=== PATIENT | female | born 1985 | race Hispanic/Latino ===

== ENCOUNTER 2021-10-12 18:20 | Inpatient (IN) | payer SELFPAY ==
[2021-10-12] VITALS (14 sets, daily range): BP systolic 99–147; BP diastolic 73–104
[~2021-10-12] VITALS: Ht 160 cm; Wt 79.9 kg
[2021-10-12] MEDS ORDERED: FLUMAZENIL 0.5MG/ 5ML VIAL IV PRN ×2 (18:45→19:00)
[2021-10-12] MEDS ORDERED: FLUMAZENIL 0.5MG/ 5ML VIAL IV ONE ×2 (18:45)
[2021-10-12 18:50] LABS: CLARITY,URINE CLEAR (CLEAR); COLOR,URINE YELLOW (YELLOW); LEUKOCYTE ESTERASE ,URINE NEGATIVE (NEGATIVE); NITRITE,URINE NEGATIVE (NEGATIVE)
[2021-10-12 18:51] LABS: KETONES,URINE NEGATIVE (NEGATIVE); PROTEIN,URINE DIPSTICK NEGATIVE (NEGATIVE); URINE UROBILINOGEN 0.2 mg/dL (0.2 - 1)
[2021-10-12 18:54] LABS: AMPHETAMINES SCREEN,URINE NEGATIVE (NEGATIVE); BENZODIAZEPINES SCREEN,URINE POSITIVE (NEGATIVE); PHENCYCLIDINE SCREEN,URINE NEGATIVE (NEGATIVE)
[2021-10-12 18:59] LABS: BACTERIA,URINE MODERATE /HPF
[2021-10-12 19:05] LABS: BASOPHILS # (AUTO) 0.1 (0.0-0.1); BASOPHILS % 0.8 % (0.0-1.0); EOSINOPHILS # (AUTO) 0.1 (0.0-0.4); EOSINOPHILS % 1.6 % (0.0-6.0); HEMATOCRIT 38.9 % (34.2-44.1); LYMPHOCYTES # (AUTO) 1.8 (1.0-3.2); LYMPHOCYTES % 19.9 % (18.0-39.1); MEAN CORPUSCULAR HEMOGLOBIN 32.2 pg (28-32); MEAN CORPUSCULAR HGB CONC 30.8 g/dL (31-35); MEAN CORPUSCULAR VOLUME 104.3 fL (81-99); MONOCYTES # (AUTO) 0.5 (0.2-0.8); MONOCYTES % 5.3 % (4.4-11.3); NEUTROPHILS # (AUTO) 6.5 (2.1-6.9); NEUTROPHILS % 72.3 % (38.7-80.0); PLATELET COUNT 185 x10e3/uL (140-360); RED BLOOD COUNT 3.73 x10e6/uL (3.6-5.1); RED CELL DISTRIBUTION WIDTH 13.9 % (11.7-14.4)
[2021-10-12] MEDS: SODIUM CHLORIDE 0.9% 1000ML 1,000 ML IV SCH ×2 (19:05→19:26)
[2021-10-12 19:23] LABS: SALICYLATE < 5.0 mg/dL (0-30)
[2021-10-12 20:15] LABS: CREATINE KINASE 51 IU/L (29-168)
[2021-10-12 20:19] LABS: ALANINE AMINOTRANSFERASE < 6 IU/L (0-55); ALBUMIN 3.1 g/dL (3.5-5.0); ALKALINE PHOSPHATASE 51 IU/L (40-150); ANION GAP 20.8 mmol/L (8-16); BLOOD UREA NITROGEN 6 mg/dL (7-26); BUN/CREATININE RATIO 8 (6-25); CALCIUM 7.1 mg/dL (8.4-10.2); CARBON DIOXIDE 10 mmol/L (22-29); CHLORIDE 120 mmol/L (98-107); CREATININE, SERUM 0.73 mg/dL (0.57-1.11); GLUCOSE 85 mg/dL (74-118); POTASSIUM 4.8 mmol/L (3.5-5.1); SODIUM 146 mmol/L (136-145)
[2021-10-13] VITALS (22 sets, daily range): BP systolic 95–151; BP diastolic 61–109
[2021-10-13 07:23] LABS: BASOPHILS # (AUTO) 0.1 (0.0-0.1); BASOPHILS % 0.6 % (0.0-1.0); EOSINOPHILS # (AUTO) 0.1 (0.0-0.4); EOSINOPHILS % 0.9 % (0.0-6.0); HEMATOCRIT 54.5 % (34.2-44.1); HEMOGLOBIN 15.8 g/dL (12.0-16.0); LYMPHOCYTES # (AUTO) 1.2 (1.0-3.2); LYMPHOCYTES % 7.5 % (18.0-39.1); MEAN CORPUSCULAR HEMOGLOBIN 32.2 pg (28-32); MEAN CORPUSCULAR VOLUME 111.2 fL (81-99); MONOCYTES # (AUTO) 0.7 (0.2-0.8); MONOCYTES % 4.7 % (4.4-11.3); NEUTROPHILS # (AUTO) 13.7 (2.1-6.9); PLATELET COUNT 209 x10e3/uL (140-360); RED CELL DISTRIBUTION WIDTH 14.3 % (11.7-14.4)
[2021-10-13 07:51] LABS: ANION GAP 19.3 mmol/L (8-16); BLOOD UREA NITROGEN < 5 mg/dL (7-26); CALCIUM 8.7 mg/dL (8.4-10.2); CHLORIDE 119 mmol/L (98-107); CREATININE, SERUM 0.74 mg/dL (0.57-1.11); GLUCOSE 75 mg/dL (74-118); POTASSIUM 4.3 mmol/L (3.5-5.1); SODIUM 142 mmol/L (136-145)
[2021-10-13 07:54] LABS: BUN/CREATININE RATIO 7 (6-25)
[2021-10-13 07:56] LABS: CARBON DIOXIDE 8 mmol/L (22-29)
[2021-10-13] MEDS ORDERED: SODIUM BICARBONATE 8.4% 50 ML in DEXTROSE 5% 1,000 ML IV ONE (08:15)
[2021-10-13 09:21] LABS: BLOOD UREA NITROGEN < 5 mg/dL (7-26); GLUCOSE 99 mg/dL (74-118); OSMOLALITY,SERUM 277 mOsm/kg (278-305); SODIUM 140 mmol/L (136-145)
[2021-10-13 09:34] LABS: ANISOCYTOSIS SLIGHT; EOSINOPHILS % (MANUAL) 1 % (0-7); LYMPHOCYTES % (MANUAL) 6 % (19-48); NEUTROPHILS % (MANUAL) 92 % (40-74); PLATELET ESTIMATE ADEQUATE; PLATELET MORPHOLOGY COMMENT NORMAL; RBC MORPHOLOGY COMMENT NORMAL
[2021-10-13] MEDS: LEVOFLOXACIN 500MG/D5W 100ML 100 ML IV SCH (10:13)
[2021-10-13 11:00] LABS: ABG PCO2 24 mmHg (35-45)
[2021-10-13 11:01] LABS: ABG HCO3 12 mmol/L (22-26); ABG PO2 141 mmHg (80-105); ABG TCO2 13
[2021-10-13 15:37] LABS: ALBUMIN 3.9 g/dL (3.5-5.0); ANION GAP 15.3 mmol/L (8-16); CALCIUM 8.8 mg/dL (8.4-10.2); CREATININE, SERUM 0.84 mg/dL (0.57-1.11); POTASSIUM 4.3 mmol/L (3.5-5.1)
[2021-10-14] VITALS (10 sets, daily range): BP systolic 94–117; BP diastolic 61–74
[2021-10-14 06:49] LABS: BASOPHILS # (AUTO) 0.1 (0.0-0.1); BASOPHILS % 0.8 % (0.0-1.0); EOSINOPHILS # (AUTO) 0.3 (0.0-0.4); EOSINOPHILS % 3.4 % (0.0-6.0); HEMATOCRIT 44.5 % (34.2-44.1); HEMOGLOBIN 14.2 g/dL (12.0-16.0); LYMPHOCYTES # (AUTO) 1.5 (1.0-3.2); MEAN CORPUSCULAR HEMOGLOBIN 31.6 pg (28-32); MEAN CORPUSCULAR HGB CONC 31.9 g/dL (31-35); MEAN CORPUSCULAR VOLUME 99.1 fL (81-99); MONOCYTES # (AUTO) 0.5 (0.2-0.8); MONOCYTES % 5.9 % (4.4-11.3); NEUTROPHILS # (AUTO) 6.1 (2.1-6.9); NEUTROPHILS % 71.7 % (38.7-80.0); PLATELET COUNT 219 x10e3/uL (140-360); RED BLOOD COUNT 4.49 x10e6/uL (3.6-5.1); RED CELL DISTRIBUTION WIDTH 13.2 % (11.7-14.4)
[2021-10-14 07:32] LABS: ALBUMIN 3.8 g/dL (3.5-5.0); ALBUMIN/GLOBULIN RATIO 1.2 (0.8-2.0); ANION GAP 13.1 mmol/L (8-16); CALCIUM 8.5 mg/dL (8.4-10.2); CREATININE, SERUM 0.73 mg/dL (0.57-1.11); POTASSIUM 3.1 mmol/L (3.5-5.1)
[2021-10-14] MEDS: LEVOFLOXACIN 500MG/D5W 100ML 100 ML IV SCH (09:00)
[2021-10-14] MEDS ORDERED: CIPRO500 MG PO (20:40)
== END 2021-10-14 23:00 | disposition home or self-care (01) | DRG 917 ==
LOC: ER 18:34 → ERHOLD 18:37 → ICU 19:58
PROVIDERS: ADMIT Family Medicine; ATTEND Family Medicine
DX: T42.4X2A Poisoning by benzodiazepines, intentional self-harm, initial encounter (principal); G92.8 Other toxic encephalopathy; G93.41 Metabolic encephalopathy; E87.2 Acidosis; N39.0 Urinary tract infection, site not specified; T42.8X2A Poisoning by antiparkinsonism drugs and other central muscle-tone depressants, intentional self-harm, initial encounter; G89.29 Other chronic pain; F90.9 Attention-deficit hyperactivity disorder, unspecified type; F31.9 Bipolar disorder, unspecified; Z20.822 Contact with and (suspected) exposure to COVID-19; E03.9 Hypothyroidism, unspecified; R40.2422 Glasgow coma scale score 9-12, at arrival to emergency department
CPT/HCPCS: 36415; 36600; 71045; 74018; 80048; 80053; 80307; 80320; 80329; 81001; 82550; 82553; 82693; 82805; 82947; 82948; 83930; 84295; 84484; 84520; 84702; 85025; 87040; 93005; 94799; 99285; J1956; J7030; J7070